=== PATIENT | female | born 1955 | race Caucasian/White ===

== ENCOUNTER 2019-08-07 02:30 | Emergency (ER) | payer MEDICARE, OTHER ==
[~2019-08-07] VITALS: Ht 152.4 cm; Wt 88.9 kg
[~2019-08-07 02:30] MED LIST: ALBUTEROL INH; ATIVAN0.5 MG PO; ATROVENT30 ML HHN; COZAAR100 MG PO; CYCLOBENZAPRINE5 MG PO; GAVISCON LIQUI355 ML PO; GLUCOTROL XL10 MG PO; HUMALOG100 UNITS/ SQ; HYDROCODON-ACE1 EA12 PO; KEFLEX500 MG PO; LANTUS100 UNITS/ SUBD; LASIX40 MG PO; LEVOTHYROXINE100 MC1 PO; LISINOPRIL10 MG PO; METOCLOPRAMIDE10 MG PO; MOTRIN800 MG PO; NOVOLOG MI100 UNITS/ SQ; PEPCID20 MG PO; TUSSIN AC PO; VITAMIN D1000 UNI1 PO; [UNRECOGNIZED DRUG - CODE] INH
[2019-08-07 04:31] LABS: CLARITY,URINE CLEAR (CLEAR); COLOR,URINE YELLOW (YELLOW); LEUKOCYTE ESTERASE ,URINE NEGATIVE (NEGATIVE); NITRITE,URINE NEGATIVE (NEGATIVE)
[2019-08-07 04:32] LABS: BILIRUBIN,URINE NEGATIVE (NEGATIVE); KETONES,URINE NEGATIVE (NEGATIVE); PROTEIN,URINE DIPSTICK 1+ (NEGATIVE); URINE UROBILINOGEN 0.2 mg/dL (0.2 - 1)
[2019-08-07 04:33] LABS: BACTERIA,URINE RARE /HPF; EPITHELIAL CELLS,URINE FEW /LPF; RBC,URINE 0-5 /HPF (0-5); WBC,URINE (MAN) 0-5 /HPF (0-5)
[2019-08-07] MEDS ORDERED: FLUCONAZOLE150 MG PO (04:43)
[2019-08-07 05:53] VITALS: BP 163/72
== END 2019-08-07 06:06 | disposition home or self-care (01) ==
LOC: ER 02:30
DX: M54.5 Low back pain (principal); R51 Headache; I10 Essential (primary) hypertension; R26.2 Difficulty in walking, not elsewhere classified; G89.29 Other chronic pain
CPT/HCPCS: 81001; 99283

== ENCOUNTER → 2022-09-21 | Outpatient (CLI) | payer MEDICARE, OTHER ==
[~2022-09-21] MED LIST changes: +FLUCONAZOLE150 MG PO
== END ==
LOC: RAD 11:26
PROVIDERS: ATTEND Family Medicine
DX: R06.02 Shortness of breath (principal)
CPT/HCPCS: 71046

== ENCOUNTER 2023-01-17 02:43 | Inpatient (IN) | payer MEDICARE, OTHER ==
[~2023-01-17] VITALS: Ht 172.7 cm; Wt 72.6 kg
[2023-01-17] MEDS ORDERED: ONDANSETRON HCL INJ 2MG/ML 2ML 2 MG/ML VIAL IV STA (03:24)
[2023-01-17 03:28] LABS: CLARITY,URINE CLEAR (CLEAR); COLOR,URINE AMBER (YELLOW)
[2023-01-17 03:29] LABS: BASOPHILS # (AUTO) 0.1 (0.0-0.1); BASOPHILS % 0.6 % (0.0-1.0); EOSINOPHILS # (AUTO) 0.1 (0.0-0.4); EOSINOPHILS % 0.8 % (0.0-6.0); HEMATOCRIT 45.9 % (34.2-44.1); HEMOGLOBIN 15.3 g/dL (12.0-16.0); KETONES,URINE 1+ (NEGATIVE); LEUKOCYTE ESTERASE ,URINE NEGATIVE (NEGATIVE); LYMPHOCYTES # (AUTO) 2.3 (1.0-3.2); LYMPHOCYTES % 18.6 % (18.0-39.1); MEAN CORPUSCULAR HEMOGLOBIN 29.1 pg (28-32); MEAN CORPUSCULAR HGB CONC 33.3 g/dL (31-35); MEAN CORPUSCULAR VOLUME 87.4 fL (81-99); MONOCYTES # (AUTO) 0.8 (0.2-0.8); MONOCYTES % 6.3 % (4.4-11.3); NEUTROPHILS % 73.1 % (38.7-80.0); NITRITE,URINE NEGATIVE (NEGATIVE); PLATELET COUNT 350 x10e3/uL (140-360); PROTEIN,URINE DIPSTICK 2+ (NEGATIVE); RED BLOOD COUNT 5.25 x10e6/uL (3.6-5.1); RED CELL DISTRIBUTION WIDTH 12.8 % (11.7-14.4); URINE UROBILINOGEN 0.2 mg/dL (0.2 - 1)
[2023-01-17] MEDS ORDERED: FENTANYL CITRATE/PF 100MCG/2 ML INJ IV ONE (03:30)
[2023-01-17] MEDS ORDERED: Morphine 4mg INJECTION 4 MG/ML INJ IV ONE (03:30)
[2023-01-17] MEDS ORDERED: SODIUM CHLORIDE 0.9% 1000ML 1,000 ML IV ONE (03:30)
[2023-01-17 03:33] LABS: BACTERIA,URINE FEW /HPF; EPITHELIAL CELLS,URINE MODERATE /LPF; RBC,URINE 0-5 /HPF (0-5); WBC,URINE (MAN) 0-5 /HPF (0-5)
[2023-01-17 03:44] LABS: ALBUMIN 3.9 g/dL (3.5-5.0); ANION GAP 21.7 mmol/L (8-16); CALCIUM 10.1 mg/dL (8.4-10.2); CREATININE, SERUM 1.22 mg/dL (0.57-1.11); POTASSIUM 4.7 mmol/L (3.5-5.1)
[2023-01-17] MEDS ORDERED: IOPAMIDOL 370 MG/ML 100 ML INFUS..BTL INJ ONE (04:19)
[2023-01-17] MEDS: SODIUM CHLORIDE 0.9% 1000ML 1,000 ML IV SCH ×3 (06:46→21:38)
[2023-01-17] MEDS: INSULIN REGULAR, HUMAN 100 UNIT/1 ML SQ SCH ×4 (07:30→17:58)
[2023-01-17] MEDS ORDERED: METOPROLOL TARTRATE INJ 1 MG/ML VIAL IV PRN (07:30)
[2023-01-17] MEDS ORDERED: DEXTROSE 50% SYRINGE 50 ML IV PRN (07:30)
[2023-01-17] MEDS ORDERED: MINERAL OIL 132 ML BTL PR PRN (07:30)
[2023-01-17 07:50] LABS: CHOL/HDL RATIO 4.3 (3.0-3.6)
[2023-01-17] MEDS: METRONIDAZOLE 500MG/NS 100ML 100 ML IV SCH (08:00)
[2023-01-17] MEDS: ONDANSETRON HCL INJ 2MG/ML 2ML 2 MG/ML VIAL IV PRN ×2 (08:00→18:00)
[2023-01-17] MEDS ORDERED: Morphine 4mg INJECTION 4 MG/ML INJ IV PRN (08:00)
[2023-01-17] MEDS ORDERED: ONDANSETRON HCL INJ 2MG/ML 2ML 2 MG/ML VIAL ONE (08:10)
[2023-01-17] MEDS ORDERED: Morphine 4mg INJECTION 4 MG/ML INJ ONE (08:10)
[2023-01-17] MEDS ORDERED: METOCLOPRAMIDE HCL 10 MG/2ML VIAL ONE (08:11)
[2023-01-17] MEDS ORDERED: METRONIDAZOLE 500MG/NS 100ML 100 ML IV ONE (08:11)
[2023-01-17] MEDS: METOCLOPRAMIDE HCL 10 MG/2ML VIAL IV SCH ×2 (08:23→21:38)
[2023-01-17] MEDS: HYDROMORPHONE 1MG/1ML INJ IV PRN ×4 (08:23→23:15)
[2023-01-17] MEDS ORDERED: HYDROMORPHONE 1MG/1ML INJ ONE (12:29)
[2023-01-17 13:16] VITALS: BP 121/71
[2023-01-17 13:54] VITALS: BP 121/71
[2023-01-17 14:18] VITALS: BP 121/71
[2023-01-17] MEDS ORDERED: METOPROLOL TART50 MG PO (14:46)
[2023-01-17] MEDS ORDERED: LOSARTAN POTASS25 MG PO (14:46)
[2023-01-17 16:25] VITALS: BP 117/62
[2023-01-17 20:00] VITALS: BP 147/73
[2023-01-17 22:21] VITALS: BP 147/73
[2023-01-18] VITALS (8 sets, daily range): BP systolic 99–147; BP diastolic 60–80
[2023-01-18] MEDS: METRONIDAZOLE 500MG/NS 100ML 100 ML IV SCH ×4 (00:02→23:13)
[2023-01-18] MEDS: HYDROMORPHONE 1MG/1ML INJ IV PRN ×4 (04:12→23:08)
[2023-01-18] MEDS: ONDANSETRON HCL INJ 2MG/ML 2ML 2 MG/ML VIAL IV PRN ×4 (04:13→23:07)
[2023-01-18] MEDS: SODIUM CHLORIDE 0.9% 1000ML 1,000 ML IV SCH ×3 (05:45→20:40)
[2023-01-18 06:33] LABS: INR 0.95; PROTHROMBIN TIME 12.9 seconds (11.9-14.5)
[2023-01-18 06:40] LABS: BASOPHILS # (AUTO) 0.1 (0.0-0.1); BASOPHILS % 0.6 % (0.0-1.0); EOSINOPHILS # (AUTO) 0.4 (0.0-0.4); EOSINOPHILS % 3.7 % (0.0-6.0); HEMATOCRIT 36.6 % (34.2-44.1); HEMOGLOBIN 12.2 g/dL (12.0-16.0); LYMPHOCYTES # (AUTO) 3.3 (1.0-3.2); LYMPHOCYTES % 34.5 % (18.0-39.1); MEAN CORPUSCULAR HEMOGLOBIN 29.5 pg (28-32); MEAN CORPUSCULAR HGB CONC 33.3 g/dL (31-35); MEAN CORPUSCULAR VOLUME 88.6 fL (81-99); MONOCYTES # (AUTO) 0.8 (0.2-0.8); MONOCYTES % 8.7 % (4.4-11.3); NEUTROPHILS % 52.1 % (38.7-80.0); PLATELET COUNT 274 x10e3/uL (140-360); RED BLOOD COUNT 4.13 x10e6/uL (3.6-5.1); RED CELL DISTRIBUTION WIDTH 13.2 % (11.7-14.4)
[2023-01-18 06:50] LABS: ALBUMIN 3.1 g/dL (3.5-5.0); ALBUMIN/GLOBULIN RATIO 0.9 (0.8-2.0); ANION GAP 13.5 mmol/L (8-16); CALCIUM 8.5 mg/dL (8.4-10.2); CREATININE, SERUM 0.73 mg/dL (0.57-1.11); POTASSIUM 4.5 mmol/L (3.5-5.1)
[2023-01-18] MEDS: INSULIN REGULAR, HUMAN 100 UNIT/1 ML SQ SCH ×4 (07:20→20:40)
[2023-01-18] MEDS: METOCLOPRAMIDE HCL 10 MG/2ML VIAL IV SCH ×2 (08:40→20:37)
[2023-01-18 10:10] LABS: ANION GAP 11.4 mmol/L (8-16); CREATININE, SERUM 0.74 mg/dL (0.57-1.11); POTASSIUM 4.4 mmol/L (3.5-5.1)
[2023-01-19] VITALS (7 sets, daily range): BP systolic 136–150; BP diastolic 66–80
[2023-01-19] MEDS: ONDANSETRON HCL INJ 2MG/ML 2ML 2 MG/ML VIAL IV PRN ×2 (03:57→11:03)
[2023-01-19] MEDS: HYDROMORPHONE 1MG/1ML INJ IV PRN ×2 (03:57→22:22)
[2023-01-19] MEDS: SODIUM CHLORIDE 0.9% 1000ML 1,000 ML IV SCH ×2 (04:54→15:11)
[2023-01-19 10:28] LABS: ANION GAP 10.2 mmol/L (8-16); CALCIUM 8.3 mg/dL (8.4-10.2); CREATININE, SERUM 0.69 mg/dL (0.57-1.11); POTASSIUM 3.2 mmol/L (3.5-5.1)
[2023-01-19] MEDS: METRONIDAZOLE 500MG/NS 100ML 100 ML IV SCH ×2 (11:04→16:27)
[2023-01-19] MEDS: METOCLOPRAMIDE HCL 10 MG/2ML VIAL IV SCH ×2 (11:04→20:27)
[2023-01-19] MEDS: INSULIN REGULAR, HUMAN 100 UNIT/1 ML SQ SCH ×4 (11:05→22:12)
[2023-01-19] MEDS ORDERED: POTASSIUM CHLORIDE 20 MEQ TAB CR PO STA (11:45)
[2023-01-19] MEDS: DOCUSATE SODIUM 100 MG CAP PO SCH ×2 (12:44→20:27)
[2023-01-19] MEDS: SENNOSIDES 8.6 MG TAB PO SCH ×2 (12:44→20:27)
[2023-01-19] MEDS ORDERED: FUROSEMIDE INJ 10 MG/ML 2 ML VIAL IV ONE (20:15)
[2023-01-19] MEDS: ALBUTEROL/IPRATROPIUM 3 ML NEB NEB SCH (23:00)
[2023-01-20] MEDS: METRONIDAZOLE 500MG/NS 100ML 100 ML IV SCH ×3 (00:39→17:19)
[2023-01-20] MEDS: ALBUTEROL/IPRATROPIUM 3 ML NEB NEB SCH ×6 (03:00→23:00)
[2023-01-20 04:00] VITALS: BP_SYST 129; BP_SYST 139; BP_DIAS 78; BP_DIAS 80
[2023-01-20] MEDS: ONDANSETRON HCL INJ 2MG/ML 2ML 2 MG/ML VIAL IV PRN ×3 (04:22→23:27)
[2023-01-20] MEDS: HYDROMORPHONE 1MG/1ML INJ IV PRN ×3 (04:23→23:23)
[2023-01-20 07:04] LABS: ANION GAP 12.5 mmol/L (8-16); CALCIUM 8.3 mg/dL (8.4-10.2); CREATININE, SERUM 0.73 mg/dL (0.57-1.11); MAGNESIUM 1.5 MG/DL (1.3-2.1); PHOSPHORUS 3.1 MG/DL (2.3-4.7); POTASSIUM 3.5 mmol/L (3.5-5.1)
[2023-01-20 08:43] VITALS: BP 144/81
[2023-01-20] MEDS: DOCUSATE SODIUM 100 MG CAP PO SCH ×2 (10:52→21:19)
[2023-01-20] MEDS: METOCLOPRAMIDE HCL 10 MG/2ML VIAL IV SCH ×2 (10:52→21:19)
[2023-01-20] MEDS: SENNOSIDES 8.6 MG TAB PO SCH ×2 (10:52→21:19)
[2023-01-20] MEDS: INSULIN REGULAR, HUMAN 100 UNIT/1 ML SQ SCH ×4 (10:54→21:47)
[2023-01-20 12:36] VITALS: BP 159/79
[2023-01-20 16:34] VITALS: BP 156/80
[2023-01-20 20:00] VITALS: BP 160/83
[2023-01-21] VITALS: BP 147/71
[2023-01-21] MEDS: METRONIDAZOLE 500MG/NS 100ML 100 ML IV SCH ×2 (00:29→08:00)
[2023-01-21] MEDS: ALBUTEROL/IPRATROPIUM 3 ML NEB NEB SCH ×4 (03:00→14:11)
[2023-01-21 04:00] VITALS: BP 152/91
[2023-01-21 06:36] LABS: ANION GAP 14.9 mmol/L (8-16); BLOOD UREA NITROGEN < 5 mg/dL (7-26); CALCIUM 8.5 mg/dL (8.4-10.2); CARBON DIOXIDE 19 mmol/L (22-29); CHLORIDE 108 mmol/L (98-107); CREATININE, SERUM 0.71 mg/dL (0.57-1.11); GLUCOSE 88 mg/dL (74-118); MAGNESIUM 1.6 MG/DL (1.3-2.1); PHOSPHORUS 3.8 MG/DL (2.3-4.7); POTASSIUM 3.9 mmol/L (3.5-5.1); SODIUM 138 mmol/L (136-145)
[2023-01-21 06:37] LABS: BUN/CREATININE RATIO 7 (6-25)
[2023-01-21 06:40] LABS: BASOPHILS # (AUTO) 0.1 (0.0-0.1); BASOPHILS % 0.8 % (0.0-1.0); EOSINOPHILS # (AUTO) 0.4 (0.0-0.4); EOSINOPHILS % 4.8 % (0.0-6.0); HEMOGLOBIN 12.3 g/dL (12.0-16.0); LYMPHOCYTES # (AUTO) 3.2 (1.0-3.2); LYMPHOCYTES % 40.5 % (18.0-39.1); MEAN CORPUSCULAR HEMOGLOBIN 32.2 pg (28-32); MEAN CORPUSCULAR HGB CONC 34.2 g/dL (31-35); MEAN CORPUSCULAR VOLUME 94.2 fL (81-99); MONOCYTES # (AUTO) 0.7 (0.2-0.8); NEUTROPHILS # (AUTO) 3.5 (2.1-6.9); NEUTROPHILS % 44.4 % (38.7-80.0); PLATELET COUNT 241 x10e3/uL (140-360); RED BLOOD COUNT 3.82 x10e6/uL (3.6-5.1); RED CELL DISTRIBUTION WIDTH 13.9 % (11.7-14.4)
[2023-01-21 06:52] VITALS: BP 152/91
[2023-01-21] MEDS: INSULIN REGULAR, HUMAN 100 UNIT/1 ML SQ SCH ×2 (07:30→12:31)
[2023-01-21 08:57] VITALS: BP 138/77
[2023-01-21] MEDS: METOCLOPRAMIDE HCL 10 MG/2ML VIAL IV SCH (09:00)
[2023-01-21 09:20] VITALS: BP 138/77
[2023-01-21] MEDS: DOCUSATE SODIUM 100 MG CAP PO SCH (10:28)
[2023-01-21] MEDS: SENNOSIDES 8.6 MG TAB PO SCH (10:28)
[2023-01-21 12:13] VITALS: BP 153/78
== END 2023-01-21 15:38 | disposition home or self-care (01) | DRG 389 ==
LOC: ER 02:51 → ERHOLD 05:40 → UNDOADMOB 05:40 → ERHOLD 08:06 → MED/SURG2 13:18
PROVIDERS: ADMIT Internal Medicine; ATTEND Internal Medicine
DX: K56.609 Unspecified intestinal obstruction, unspecified as to partial versus complete obstruction (principal); E87.20 Acidosis, unspecified; N17.9 Acute kidney failure, unspecified; E11.9 Type 2 diabetes mellitus without complications; I48.0 Paroxysmal atrial fibrillation; Z79.01 Long term (current) use of anticoagulants; Z20.822 Contact with and (suspected) exposure to COVID-19; E87.6 Hypokalemia; E11.69 Type 2 diabetes mellitus with other specified complication; Z88.5 Allergy status to narcotic agent; Z88.0 Allergy status to penicillin; Z88.8 Allergy status to other drugs, medicaments and biological substances
CPT/HCPCS: 0223U; 36415; 74018; 74177; 80048; 80053; 80061; 81001; 82948; 83036; 83605; 83690; 83735; 84100; 85025; 85610; 85730; 93005; 96361; 99285; J1170; J1817; J1940; J2270; J2405; J2765; J3010; J7030; Q9967

== ENCOUNTER 2023-05-13 22:41 | Emergency (ER) | payer MEDICARE, OTHER ==
[~2023-05-13] VITALS: Ht 152.4 cm; Wt 72.6 kg
[~2023-05-13 22:41] MED LIST changes: +LOSARTAN POTASS25 MG PO; +METOPROLOL TART50 MG PO
[2023-05-13 22:58] LABS: BASOPHILS # (AUTO) 0.1 (0.0-0.1); BASOPHILS % 0.6 % (0.0-1.0); EOSINOPHILS # (AUTO) 0.2 (0.0-0.4); EOSINOPHILS % 1.5 % (0.0-6.0); HEMATOCRIT 43.5 % (34.2-44.1); HEMOGLOBIN 15.2 g/dL (12.0-16.0); LYMPHOCYTES # (AUTO) 5.8 (1.0-3.2); LYMPHOCYTES % 44.3 % (18.0-39.1); MEAN CORPUSCULAR HEMOGLOBIN 29.3 pg (28-32); MEAN CORPUSCULAR HGB CONC 34.9 g/dL (31-35); MONOCYTES % 7.9 % (4.4-11.3); NEUTROPHILS # (AUTO) 5.9 (2.1-6.9); NEUTROPHILS % 45.2 % (38.7-80.0); PLATELET COUNT 393 x10e3/uL (140-360); RED BLOOD COUNT 5.18 x10e6/uL (3.6-5.1)
[2023-05-13 23:17] LABS: ALBUMIN 4.3 g/dL (3.5-5.0); ALBUMIN/GLOBULIN RATIO 1.1 (0.8-2.0); ANION GAP 18.5 mmol/L (8-16); CALCIUM 9.9 mg/dL (8.4-10.2); CREATININE, SERUM 1.18 mg/dL (0.57-1.11); POTASSIUM 3.5 mmol/L (3.5-5.1)
[2023-05-13] MEDS ORDERED: IOPAMIDOL 370 MG/ML 100 ML INFUS..BTL INJ ONE (23:25)
[2023-05-14 03:32] VITALS: BP 129/84; PULSE 76; RESP 18; TEMP 98.3; O2SAT 0
== END 2023-05-14 02:55 | disposition home or self-care (01) ==
LOC: ER 22:47
DX: R07.2 Precordial pain (principal); R06.02 Shortness of breath; R10.9 Unspecified abdominal pain; R11.2 Nausea with vomiting, unspecified; I10 Essential (primary) hypertension; I25.2 Old myocardial infarction; I48.91 Unspecified atrial fibrillation; E03.9 Hypothyroidism, unspecified; E78.5 Hyperlipidemia, unspecified; Z79.899 Other long term (current) drug therapy
CPT/HCPCS: 36415; 71260; 74177; 80053; 82550; 83880; 84484; 85025; 93005 ×2; 99284; Q9967